=== PATIENT | male | born 1975 | race Caucasian/White ===

== ENCOUNTER 2022-03-29 19:57 | Emergency (ER) | payer OTHER ==
[~2022-03-29] VITALS: Ht 188 cm; Wt 108.0 kg
--- OUTSIDE RECORDS SUMMARY | 2022-03-29 20:01 | XMS ---
PreManage Notification: CHAITANYA TRAN Security Scales Inspector Events No recent Security Events currently on file CRITERIA MET - [facility] CARE PROVIDERS There are no care providers on record at this time. Elizabeth has no Care Guidelines for this patient. Samra VISIT COUNT (12 MO.) 1 DAVY Howard TOTAL 1 NOTE: Visits indicate total known visits. ED/C VISIT TRACKING (12 MO.) 03/29/2022 19:58 DAVY White [place] TYPE: Emergency COMPLAINT: - R HAND INJURY INPATIENT VISIT TRACKING (12 MO.) No inpatient visits to display in this time frame [email or web address]
[2022-03-29] MEDS ORDERED: TRULICITY0.75 MG/0. SQ (20:19)
[2022-03-29] MEDS ORDERED: METFORMIN HCL500 MG PO (20:20)
[2022-03-29] MEDS ORDERED: WELLBUTRIN XL300 MG PO (20:20)
[2022-03-29] MEDS ORDERED: NORVASC10 MG PO (20:21)
[2022-03-29] MEDS ORDERED: LOSARTAN POTASS25 MG PO (20:21)
[2022-03-29] MEDS ORDERED: ABILIFY2 MG PO (20:21)
[2022-03-29] MEDS ORDERED: HYDROCODON-ACE1 EA10 PO (22:26)
== END 2022-03-29 22:52 | disposition home or self-care (01) ==
LOC: ED 19:57
DX: S62.111A Displaced fracture of triquetrum [cuneiform] bone, right wrist, initial encounter for closed fracture (principal); Y04.8XXA Assault by other bodily force, initial encounter; E11.9 Type 2 diabetes mellitus without complications; I10 Essential (primary) hypertension; Z88.8 Allergy status to other drugs, medicaments and biological substances; Z79.899 Other long term (current) drug therapy; Z79.84 Long term (current) use of oral hypoglycemic drugs
CPT/HCPCS: 29125; 73130; 99283-25; A9270